=== PATIENT | female | born 1995 | race Caucasian/White ===

== ENCOUNTER 2019-11-18 22:55 | Emergency (ER) | payer OTHER, SELFPAY ==
[2019-11-18 22:56] VITALS: BP 130/79; PULSE 97; RESP 15; TEMP 36.7; O2SAT 100; BMI 19.8
--- NOTE | 2019-11-18 23:05 | PC.NURSE ---
heart tones 148
[2019-11-18 23:29] LABS: Strep Scrn Group A (Rapid) Negative (Negative)
--- NOTE | 2019-11-19 00:24 | HMH.EDURI ---
ED Disposition Clinical Impression: Pharyngitis Qualifiers: Pharyngitis/tonsillitis etiology: unspecified etiology Qualified Code(s): J02.9 - Acute pharyngitis, unspecified Qualifiers: Weeks of gestation: 21 weeks Qualified Code(s): Z3A.21 - 21 weeks gestation of Disposition: Home, Self-Care Condition on Discharge: Good Instructions: DI for Strep Throat Additional Instructions: use meds and see pcp and ob for follo wup Prescriptions: cephALEXin [Keflex 500mg Cap] 500 mg PO TID #30 cap Transmission Status: Pending to [facility] Referrals: Provider,Referral, [Primary Care Provider] - - Critical Care Critical Care Time: No Attestation: On 11/18/19, the high probability of a clinically significant, sudden or life threatening deterioration of the following system(s) required my full and direct attention, intervention and personal management. The time I documented below is in addition to time spent performing reported procedures but includes the following listed in this critical care notation. Medical Decision Making - Medical Records Medical records reviewed: Yes: I reviewed the patient's medical records. - Cristi Inquiry Pt receiving controlled substance: No Vital Signs: 11/18/19 22:56 Temperature 98.1 F Temperature Source Oral Pulse Rate [Left Radial] 97 H Respiratory Rate 15 Blood Pressure [Right Arm] 130/79 Blood Pressure Mean [Right Arm] 96 Blood Pressure Source [Right Arm] Automatic Cuff Blood Pressure Position [Right Arm] Sitting 02 Sat by Pulse Oximetry 100 Oxygen Delivery Method Room Air - Lab Data Lab results reviewed: Yes: I reviewed the patient's lab results. Lab Results 11/18/19 23:00: Influenza Type A Ag Negative, Influenza Type B Ag Negative 11/18/19 23:00: Group A Strep Rapid Negative Orders (Tests/Meds): ORDERS Category Date Time Status Strep Screen Confirmation Stat Micro 11/18/19 23:00 Received URI/Sore Throat HPI - General Chief Complaint: Upper Respiratory Infection Stated Complaint: sore throat/blisters 21 wks Time Seen by Provider: 11/19/19 00:00 Mode of Arrival: Ambulatory Source of Information: Patient, Medical Record Limitations: No Limitations Description of Symptoms (Recalled from ER Triage Doc. by RN): pt c/o of a sore throat with white patches since today. pt denies any SOB, cough or fever at this time. - History of Present Illness HPI Narrative: sore throat today w/o cough or rash and no fever - no known exposure covid-19 - preg 21 weeks Complaint: sore throat Onset (ago): hour(s) Duration: intermittent Severity: moderate Able to tolerate fluids by mouth: Yes Associated symptoms: denies other symptoms Treatments prior to arrival: none - Related Data Previous Rx's Medication Instructions Recorded cephALEXin [Keflex 500mg Cap] 500 mg PO TID #30 cap 11/19/19 Allergies Allergy/AdvReac Type Severity Reaction Status Date / Time No Known Allergies Allergy Verified 11/18/19 23:16 [facility] History - Hepatitis A Screen Drug use history?: No High risk sexual behaviors?: No History of sexually transmitted infection?: No Currently employed?: No Childcare worker?: No Do you have indoor plumbing?: Yes Do you have electricity?: Yes Attestation statement:: This patient has been screened for Hepatitis A risk factors. I have reviewed the patient's past medical history: Yes - Social History Smoking Status: Current every day smoker Tobacco Type: e-cigarettes # Packs/Day (cigarettes): 1 Alcohol Intake: never Occupational Status: employed ROS Obtained: Yes All systems reviewed & no additional complaints - Constitutional Constitutional: Denies fever(s) - Eyes Eyes: Denies change in vision - ENT Ears, Nose, Mouth, and Throat: Reports as per HPI, Reports sore throat - Cardiovascular Cardiovascular: Denies chest pain - Respiratory Respiratory: No cough - Gastrointes
[2019-11-19 00:35] VITALS: BP 125/78; PULSE 92; RESP 15; TEMP 36.7; O2SAT 97
== END 2019-11-19 00:38 | disposition home or self-care (01) ==
PROVIDERS: Emergency Provider Emergency Medicine
DX: J02.9 Acute pharyngitis, unspecified (principal); Z3A.21 21 weeks gestation of pregnancy; F17.290 Nicotine dependence, other tobacco product, uncomplicated
CPT/HCPCS: 87275; 87276; 87430; 99282

== ENCOUNTER 2020-06-11 10:34 | Emergency (ER) | payer OTHER, SELFPAY ==
[2020-06-11 10:41] VITALS: BP 146/99; PULSE 100; RESP 20; TEMP 36.8; O2SAT 97; BMI 21.9
--- NOTE | 2020-06-11 10:44 | HMH.EDGENADL ---
ED Disposition Clinical Impression: Tooth ache, Dental caries Disposition: Home, Self-Care Condition on Discharge: Good Instructions: DI for Dental Pain Additional Instructions: Penicillin as prescribed. Cloudcroft as needed for pain. Additional instructions for DENTAL PROBLEMS: See a dentist as soon as possible for further evaluation. Return immediately if you have an uncontrollable fever greater than 102 degrees, difficulty breathing or shortness of breath, persistent vomiting, or inability to swallow. Additional instructions for CONTROLLED SUBSTANCES: You have been prescribed a medication that is a controlled substance. Controlled substances include pain medications known as opiates and sedative nerve medications known as benzodiazepines. Tramadol, fioricet, and gabapentin are also controlled substances. Some common opiates include: Codeine (such as Tylenol #3) Hydrocodone (Vicodin, Lortab, Lorcet, Cloudcroft) Oxycodone (Percocet, Percodan, Oxycodone, Oxy IR) Some common benzodiazepines include: Diazepam (Valium) Lorazepam (Ativan) Alprazolam (Xanax) Clonazepam (Klonopin) Oxazepam (Serax) All of these controlled substances are highly addictive and frequently abused. Misuse can and frequently does lead to addiction as well as overdose and . Medication should be stored in a locked cabinet or other secure storage unit. Do not store the medication in a motor vehicle. Short term supplies, 3 days or less, are prescribed because of the highly addictive nature of the medication. Any of the controlled substance medication NOT taken should be disposed of properly and NOT SAVED. The recommended method of disposing of unused medications is: Place the medicines in a sealable plastic bag. If the medicine is a solid, crush it or add water to dissolve it. Add something undesirable (cat litter, coffee grounds, etc.) Dispose of sealed bag in household trash Do not flush or pour unused medicines down a sink or drain. Controlled substances should not be shared, given away or sold. Because of the addictive nature and frequent abuse, these medications are sometimes stolen. These medications should be kept in a safe place where they cannot be stolen. Do not keep them in your car or purse. Lost or stolen prescriptions for controlled substances WILL NOT BE REFILLED in this emergency department, regardless of whether a police report was filed. Prescriptions: Hydrocod/Acet 5/325 mg [[place] 5/325mg tablet] 1 tab PO Q6HP PRN #10 tab PRN Reason: Pain Transmission Status: [facility] Penicillin V Potassium 500 mg PO QID #40 tab Transmission Status: Pending to [facility] Referrals: PCP,No [Primary Care Provider] - - Critical Care Critical Care Time: No Attestation: On , the high probability of a clinically significant, sudden or life threatening deterioration of the following system(s) required my full and direct attention, intervention and personal management. The time I documented below is in addition to time spent performing reported procedures but includes the following listed in this critical care notation. Medical Decision Making - Cristi Inquiry Pt receiving controlled substance: Yes Cristi was queried for this patient: Yes Reference #:: [id number] Risks and benefits of using a controlled substance: were discussed with pt by me Comment: 0 rxs. Vital Signs: 06/11/20 10:41 Temperature 98.3 F Temperature Source Oral Pulse Rate [Left Radial] 100 H Respiratory Rate 20 Blood Pressure [Left Arm] 146/99 H Blood Pressure Mean [Left Arm] 114 Blood Pressure Source [Left Arm] Automatic Cuff Blood Pressure Position [Left Arm] Supine 02 Sat by Pulse Oximetry 97 Oxygen Delivery Method Room Air General Adult HPI - General Stated complaint: mouth pain Time Seen by Provider: 06/11/20 10:55 - History of Present Illness HPI narrative: 2-day history of left mandibular
[2020-06-11 11:01] VITALS: BP 133/102; PULSE 96; RESP 20; O2SAT 97
[2020-06-11 11:11] VITALS: BP 145/97; PULSE 98; RESP 16; TEMP 36.8; O2SAT 98
== END 2020-06-11 11:16 | disposition home or self-care (01) ==
PROVIDERS: Emergency Provider Emergency Medicine
DX: K02.9 Dental caries, unspecified (principal); K08.89 Other specified disorders of teeth and supporting structures; F17.290 Nicotine dependence, other tobacco product, uncomplicated
CPT/HCPCS: 99282

== ENCOUNTER 2020-08-02 15:56 | Emergency (ER) | payer OTHER, SELFPAY ==
[2020-08-02 16:22] VITALS: BP 143/72; PULSE 94; RESP 16; TEMP 36.8; O2SAT 97; BMI 21.2
--- NOTE | 2020-08-02 16:58 | HMH.EDUTC ---
[facility] [place] Clinical Impression: Suspected COVID-19 virus infection Maxillary sinusitis, acute Qualifiers: Recurrence: non-recurrent Qualified Code(s): J01.00 - Acute maxillary sinusitis, unspecified Disposition: Home, Self-Care Condition on Discharge: Good Instructions: Sinusitis, Sinus Headache, DI for Sinusitis, DI for COVID-19 (Suspected or Confirmed ), Preventing the Spread of Coronavirus Discharge Instructions Additional Instructions: Start antibiotic patient to take as ordered for a full length of time even if you feel better. Sinus infections do not get better overnight. It may take 2-3 days to notice much improvement so be sure to use conservative measures as discussed for symptoms. Flonase 1 spray each nostril daily to help with nasal congestion, sinus and ear pressure/information Increase fluids Humidifier/vaporizer as needed Tylenol and ibuprofen as needed for fever or pain. If symptoms do not improve or get worse return or be seen in the ER Follow-up with primary care this week self isolate until test results are known to be neg CODY diet Prescriptions: Fluticasone Propionate [Flonase 50mcg nasal spray 16gm] 1 spr NS DAILY 14 Days #1 bottle Transmission Status: Pending to [facility] Azithromycin [Zithromax 250mg tab] 250 mg PO DIRECTED #6 tab Transmission Status: Pending to [facility] Referrals: PCP,No [Primary Care Provider] - Forms: Work/School Release Time of Disposition: 17:05 Medical Decision Making - Cristi Inquiry Pt receiving controlled substance: No Vital Signs: 08/02/20 16:22 Temperature 98.3 F Temperature Source Oral Pulse Rate [Right] 94 H Respiratory Rate 16 Blood Pressure [Right Arm] 143/72 H Blood Pressure Mean [Right Arm] 95 Blood Pressure Source [Right Arm] Automatic Cuff Blood Pressure Position [Right Arm] Sitting 02 Sat by Pulse Oximetry 97 Orders (Tests/Meds): ORDERS Category Date Time Status Covid-19 Nasal PCR ([facility]) Routine Lab 08/02/20 16:47 Ordered [facility] [place] - General Chief complaint: [facility] Stated complaint: covid test, sore throat,V&D,[place],Weakness Time Seen by Provider: 08/02/20 16:58 Mode of Arrival: Ambulatory Source of Information: Patient Limitations: No Limitations Description of Symptoms (Recalled from Triage Doc. by RN): WEAKNESS, N/V, DIARHEA, SORE THROAT. HEENT Symptoms (Recalled from RN notes): Yes (SORE THROAT) Resp Symptoms (Recalled from RN notes): No Skin Symptoms (Recalled from RN notes): No MS Symptoms (Recalled from RN notes): No Functional Status (Recalled from RN notes): NA - History of Present Illness Provider Complaint: 25 yr old female presents for green nasal congestion,sore throat, body aches, headache and n/v. - Related Data Previous Rx's Medication Instructions Recorded Hydrocod/Acet 5/325 mg [[place] 1 tab PO Q6HP PRN #10 tab 06/11/20 5/325mg tablet] Penicillin V Potassium 500 mg PO QID #40 tab 06/11/20 Azithromycin [Zithromax 250mg 250 mg PO DIRECTED #6 tab 08/02/20 tab] Fluticasone Propionate [Flonase 1 spr NS DAILY 14 Days #1 bottle 08/02/20 50mcg nasal spray 16gm] Allergies Allergy/AdvReac Type Severity Reaction Status Date / Time No Known Allergies Allergy Verified 11/18/19 23:16 - Worker's Comp Is this a Worker's Comp case?: No [facility] History - Hepatitis A Screen Drug use history?: No High risk sexual behaviors?: No History of sexually transmitted infection?: No Currently employed?: No Childcare worker?: No Do you have indoor plumbing?: Yes Do you have electricity?: Yes Attestation statement:: This patient has been screened for Hepatitis A risk factors. I have reviewed the patient's past medical history: Yes - Social History Smoking Status: Never smoker Tobacco Type: e-cigarettes # Packs/Day (cigarettes): 1 Alcohol Intake: never Occupational Status: employed ROS Obtained: Yes Systems reviewed as appropriat
[2020-08-02 17:27] VITALS: BP 144/79; PULSE 87; RESP 16; TEMP 36.8
[2020-08-02 17:52] LABS: UTC Strep Screen (Rapid) Negative (Negative)
[2020-08-03 19:06] LABS: UTC Influenza A Antigen Negative (Negative); UTC Influenza B Antigen Negative (Negative)
== END 2020-08-02 17:15 | disposition home or self-care (01) ==
PROVIDERS: Emergency Provider Nurse Practitioner Family
DX: Z20.822 Contact with and (suspected) exposure to COVID-19 (principal); J01.00 Acute maxillary sinusitis, unspecified; F17.290 Nicotine dependence, other tobacco product, uncomplicated
CPT/HCPCS: 87804; 87880; 99202; G0463; U0003

== ENCOUNTER 2021-01-10 09:03 | Emergency (ER) | payer OTHER, SELFPAY ==
[2021-01-10 09:33] VITALS: BP 116/70; PULSE 109; RESP 18; TEMP 36.9; O2SAT 98; BMI 21.9
[2021-01-10 09:39] LABS: Coronavirus 19, PCR Not Detected (NotDetected); Influenza A, PCR Not Detected (NotDetected); Influenza B, PCR Not Detected (NotDetected)
[2021-01-10 09:42] LABS: UTC Strep Screen (Rapid) Positive (Negative)
--- NOTE | 2021-01-10 09:44 | HMH.EDUTC ---
[facility] [place] Dis[place] Clinical Impression: Strep throat Disposition: Home, Self-Care Condition on Discharge: Good Instructions: DI for Strep Throat, Strep Throat Additional Instructions: *Monitor Temp, Over the counter Motrin or Tylenol as directed/as needed Tylenol every 4 hours and Motrin every 6 hours (as long as your family doctor has told you that you can take it) for fever or pain. and straight to ER if unable to lower temp less than 101.0 after medication given *Warm salt water gargles may help to soothe the throat *Throat Lozenges *Warm fluids like tea with honey may help to soothe the throat *Sleep elevated *Humidifier/Vaporizer *Flonase 2 sprays in each nostril daily but be aware that it may take 2-3 days before you notice improvement Follow up IMMEDIATELY for new or worsening symptoms or no Noticeable improvement over the next 48-72 hours. 911 for difficulty breathing or swallowing You were tested for today for COVID19 your test result should be back in the next 24-48 hours, you may call to the [facility] to see if your test results are back in the next 48 hours [phone] [facility] hours are 9am-9pm You was given a handout with instructions for Self Quarantine and Self isolation for while you wait on test results and what to do if they are positive If you are positive the Health Dept will be contacting you also Prescriptions: Amoxicillin [Amoxicillin 500mg Cap] 500 mg PO TID #30 cap Transmission Status: [facility] to [facility] Ondansetron [Zofran 4mg ODT] 4 mg PO TIDP PRN #6 tab PRN Reason: Nausea Transmission Status: [facility] to [facility] Referrals: Provider,Referral, [Primary Care Provider] - As needed Forms: Work/School Release Time of Disposition: 09:56 Medical Decision Making - Cristi Inquiry Pt receiving controlled substance: No Cristi was queried for this patient: No Vital Signs: 01/10/21 09:33 Temperature 98.5 F Temperature Source Oral Pulse Rate [Apical] 109 H Respiratory Rate 18 Blood Pressure [Right Arm] 116/70 Blood Pressure Mean [Right Arm] 85 Blood Pressure Source [Right Arm] Automatic Cuff Blood Pressure Position [Right Arm] Supine 02 Sat by Pulse Oximetry 98 Oxygen Delivery Method Room Air - Lab Data Lab results reviewed: Yes: I reviewed the patient's lab results. Lab Results 01/10/21 09:29: Strep Scn Rapid Clinic Positive A Orders (Tests/Meds): ORDERS Category Date Time Status Rapid PCR Covid and Flu A/B Stat Lab 01/10/21 09:38 Received [facility] [place] HPI - General Stated complaint: nausea, muscle pain Time Seen by Provider: 01/10/21 09:44 Mode of Arrival: Ambulatory Source of Information: Patient Limitations: No Limitations Description of Symptoms (Recalled from Triage Doc. 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 and other Upper Respiratory Viruses States that for the last couple of days she has been having body aches, chills, and nausea along with headache States that today she was feeling worse so she came in to get checked - Related Data Previous Rx's Medication Instructions Recorded Hydrocod/Acet 5/325 mg [[place] 1 tab PO Q6HP PRN #10 tab 06/11/20 5/325mg tablet] Penicillin V Potassium 500 mg PO QID #40 tab 06/11/20 Azithromycin [Zithromax 250mg 250 mg PO DIRECTED #6 tab 08/02/20 tab] Fluticasone Propionate [Flonase 1 spr NS DAILY 14 Days #1 bottle 08/02/20 50mcg nasal spray 16gm] Amoxicillin [Amoxicillin 500mg 500 mg PO TID #30 cap 01/10/21 Cap] Ondansetron [Zofran 4mg ODT] 4 mg PO TIDP PRN #6 tab 01/10/21 Allergies Allergy/AdvRea
[2021-01-10 09:58] VITALS: BP 116/70; PULSE 109; RESP 18; TEMP 36.9; O2SAT 98
== END 2021-01-10 10:00 | disposition home or self-care (01) ==
PROVIDERS: Emergency Provider Nurse Practitioner
DX: J02.0 Streptococcal pharyngitis (principal); Z20.822 Contact with and (suspected) exposure to COVID-19
CPT/HCPCS: 87880; 99202; G0463; U0003

== ENCOUNTER 2021-01-18 18:26 | Emergency (ER) | payer OTHER, SELFPAY ==
[2021-01-18 19:17] VITALS: BP 121/86; PULSE 88; RESP 18; TEMP 36.9; O2SAT 98; BMI 21.9
--- NOTE | 2021-01-18 19:25 | HMH.EDUTC ---
[facility] [place] Disposition Clinical Impression: Encounter for laboratory testing for COVID-19 virus Disposition: Home, Self-Care Condition on Discharge: Good Instructions: DI for COVID-19 (Suspected or Confirmed ), Preventing the Spread of Coronavirus Discharge Instructions Additional Instructions: *Monitor Temp, Over the counter Motrin or Tylenol as directed/as needed Tylenol every 4 hours and Motrin every 6 hours (as long as your family doctor has told you that you can take it) for fever or pain. and straight to ER if unable to lower temp less than 101.0 after medication given *Warm salt water gargles may help to soothe the throat *Throat Lozenges *Warm fluids like tea with honey may help to soothe the throat *Sleep elevated *Humidifier/Vaporizer *Flonase 2 sprays in each nostril daily but be aware that it may take 2-3 days before you notice improvement *Bromfed may cause drowsiness. Know how it effects you (your child) before driving, caring for small child, or sending your child to school. Not other antihistamines/allergy medications while taking bromfed Follow up IMMEDIATELY for new or worsening symptoms or no Noticeable improvement over the next 48-72 hours. 911 for difficulty breathing or swallowing You were tested for today for COVID19 your test result should be back in the next 24-48 hours, you may call to the [facility] to see if your test results are back in the next 48 hours [phone] [facility] hours are 9am-9pm You was given a handout with instructions for Self Quarantine and Self isolation for while you wait on test results and what to do if they are positive If you are positive the Health Dept will be contacting you also Prescriptions: Brompheniramine/Pseudoephed/Dm [Bromfed Dm Cough Syrup] 5 - 10 ml PO Q46H PRN #240 ml PRN Reason: Cough Transmission Status: Pending to [facility] Fluticasone Propionate [Flonase 50mcg nasal spray 16gm] 1 spr NS DAILY #1 ml Transmission Status: Pending to [facility] Referrals: Provider,Referral, MD [Primary Care Provider] - As needed Forms: Work/School Release Time of Disposition: 19:30 Medical Decision Making - Cristi Inquiry Pt receiving controlled substance: No Cristi was queried for this patient: No Vital Signs: 01/18/21 19:17 Temperature 98.5 F Temperature Source Oral Pulse Rate [Left] 88 Respiratory Rate 18 Blood Pressure [Right Arm] 121/86 Blood Pressure Mean [Right Arm] 97 02 Sat by Pulse Oximetry 98 Orders (Tests/Meds): ORDERS Category Date Time Status Full Resp Panel w/COVID ([facility]) Routine Lab 01/18/21 19:18 Ordered [facility] [place] HPI - General Stated complaint: covid test Time Seen by Provider: 01/18/21 19:25 Mode of Arrival: Ambulatory Source of Information: Patient Limitations: No Limitations Description of Symptoms (Recalled from Triage Doc. by RN): pt c/o runny nose, cough, chills and body aches x1 weeks. HEENT Symptoms (Recalled from RN notes): Yes (nasal drainage) Resp Symptoms (Recalled from RN notes): Yes (cough) Skin Symptoms (Recalled from RN notes): No MS Symptoms (Recalled from RN notes): No Functional Status (Recalled from RN notes): chills and body aches - History of Present Illness Provider Complaint: Patient states that she has been having nasal congestion and runny nose, cough, fever body aches and chills State that she is currently on Medication for strep throat but still is not feeling any better so she came in wanting to get tested for COVID and RSV due to her child has it right now - Related Data Previous Rx's Medication Instructions Recorded Hydrocod/Acet 5/325 mg [[place] 1 tab PO Q6HP PRN #10 tab 06/11/20 5/325mg tablet] Penicillin V Potassium 500 mg PO QID #40 tab 06/11/20 Azithromycin [Zithromax 250mg 250 mg PO DIRECTED #6 tab 08/02/20 tab] Fluticasone Propionate [Flonase 1 spr NS DAILY 14 Days #1 bottle 08/02/20 50mcg nasal spray 16gm] Amoxicillin [Amoxicillin 500mg 500 mg PO TID #30
[2021-01-18 19:27] LABS: Adenovirus,PCR Not Detected (NotDetected); Bordetella Pertussis Not Detected (NotDetected); Chlamydophila Pneumoniae, PCR Not Detected (NotDetected); Coronavirus 19, PCR Not Detected (NotDetected); Coronavirus 229E Not Detected (NotDetected); Coronavirus NL63 Not Detected (NotDetected); Coronavirus OC43 Not Detected (NotDetected); Coronovirus HKU1,PCR Not Detected (NotDetected); Human Metapneumovirus Not Detected (NotDetected); Influenza A, PCR Not Detected (NotDetected); Influenza AH1, 2009 Not Detected (NotDetected); Influenza AH1, PCR Not Detected (NotDetected); Influenza AH3,PCR Not Detected (NotDetected); Influenza B, PCR Not Detected (NotDetected); Mycoplasma Pneumoniae, PCR Not Detected (NotDetected); Parainfluenza 1, PCR Not Detected (NotDetected); Parainfluenza 2, PCR Not Detected (NotDetected); Parainfluenza 3, PCR Not Detected (NotDetected); Parainfluenza 4, PCR Not Detected (NotDetected); Rhinovirus/Enterovirus Not Detected (NotDetected)
[2021-01-18 20:02] VITALS: BP 125/81; PULSE 91; RESP 18; TEMP 36.9
[2021-01-18 22:04] LABS: Respiratory Syncytial Virus Detected (NotDetected)
== END 2021-01-18 20:02 | disposition home or self-care (01) ==
PROVIDERS: Emergency Provider Nurse Practitioner
DX: J06.9 Acute upper respiratory infection, unspecified (principal); B97.4 Respiratory syncytial virus as the cause of diseases classified elsewhere; Z20.822 Contact with and (suspected) exposure to COVID-19
CPT/HCPCS: 87581; 87633; 87798; 99202; G0463

== ENCOUNTER → 2021-03-13 10:22 | Outpatient (CLI) | payer OTHER, SELFPAY | PROVIDERS: Visit Provider Nurse Practitioner | DX: Z20.822 Contact with and (suspected) exposure to COVID-19 (principal) | CPT/HCPCS: C9803; U0003; U0005 ==

== ENCOUNTER → 2021-06-04 17:24 | Outpatient (CLI) | payer OTHER, SELFPAY | PROVIDERS: Visit Provider Nurse Practitioner Family | DX: Z20.822 Contact with and (suspected) exposure to COVID-19 (principal) | CPT/HCPCS: C9803; U0003; U0005 ==

== ENCOUNTER 2021-08-31 09:06 | Emergency (ER) | payer OTHER, SELFPAY ==
[2021-08-31 09:55] VITALS: BP 121/89; PULSE 102; RESP 19; TEMP 37; O2SAT 98; BMI 22.1
--- NOTE | 2021-08-31 10:19 | HMH.EDUTC ---
[facility] [place] Disposition Clinical Impression: URI (upper respiratory infection) Qualifiers: URI type: unspecified URI Qualified Code(s): J06.9 - Acute upper respiratory infection, unspecified Disposition: Home, Self-Care Condition on Discharge: Good Instructions: Sore Throat, Azithromycin Additional Instructions: *Monitor Temp, Over the counter Motrin or Tylenol as directed/as needed Tylenol every 4 hours and Motrin every 6 hours (as long as your family doctor has told you that you can take it) for fever or pain. and straight to ER if unable to lower temp less than 101.0 after medication given *Warm salt water gargles may help to soothe the throat *Throat Lozenges *Warm fluids like tea with honey may help to soothe the throat *Sleep elevated *Humidifier/Vaporizer Your throat swab was sent for culture. Those results are typically sent to your primary care. Be sure to follow up in 2-3 days with your family doctor/primary care physician if no improvement so they can review those result and treat if necessary. If you don?t have a primary care doctor, I recommend you get one but in the mean time, you will have to return to a walk in clinic Follow up IMMEDIATELY for new or worsening symptoms or no Noticeable improvement over the next 48-72 hours. 911 for difficulty breathing or swallowing Prescriptions: Azithromycin [Z-Andres 250mg Tab] 250 mg PO DIRECTED #6 tab Transmission Status: Pending to [facility] Referrals: Provider,Referral, MD [Primary Care Provider] - As needed Time of Disposition: 11:16 Medical Decision Making - Cristi Inquiry Pt receiving controlled substance: No Cristi was queried for this patient: No Vital Signs: 08/31/21 09:55 Temperature 98.6 F Temperature Source Oral Pulse Rate [Right Brachial] 102 H Respiratory Rate 19 Blood Pressure [Right Arm] 121/89 Blood Pressure Mean [Right Arm] 99 Blood Pressure Source [Right Arm] Automatic Cuff Blood Pressure Position [Right Arm] Sitting 02 Sat by Pulse Oximetry 98 Oxygen Delivery Method Room Air - Lab Data Lab results reviewed: Yes: I reviewed the patient's lab results. Lab Results 08/31/21 10:08: Group A Strep Rapid Negative Orders (Tests/Meds): ORDERS Category Date Time Status Strep Screen Confirmation Stat Micro 08/31/21 10:08 Received [facility] [place] HPI - General Stated complaint: nausea, sore throat Time Seen by Provider: 08/31/21 10:19 Mode of Arrival: Ambulatory Source of Information: Patient Limitations: No Limitations Description of Symptoms (Recalled from Triage Doc. by RN): PATIENT C/O IRRITATED THROAT, BODY ACHES, AND UPSET STOMACH X 3 DAYS HEENT Symptoms (Recalled from RN notes): Yes Resp Symptoms (Recalled from RN notes): No Skin Symptoms (Recalled from RN notes): No MS Symptoms (Recalled from RN notes): No Functional Status (Recalled from RN notes): WNL - History of Present Illness Provider Complaint: Patient states that she thinks she may have strep throat States that her throat is feeling raw and irritated, body aches, upset stomach and over all not feeling well States that today her infant was feeling bad so she came in to get checked out - Related Data Previous Rx's Medication Instructions Recorded Azithromycin [Z-Andres 250mg Tab] 250 mg PO DIRECTED #6 tab 08/31/21 Allergies Allergy/AdvReac Type Severity Reaction Status Date / Time No Known Allergies Allergy Verified 11/18/19 23:16 - Worker's Comp Is this a Worker's Comp case?: No [facility] History - Hepatitis A Screen Drug use history?: No High risk sexual behaviors?: No History of sexually transmitted infection?: No Currently employed?: No Childcare worker?: No Do you have indoor plumbing?: Yes Do you have electricity?: Yes Attestation statement:: This patient has been screened for Hepatitis A risk factors. I have reviewed the patient's past medical history: Yes - Social History Smoking Status: Never smoker Tobacco Type:
[2021-08-31 10:41] LABS: Strep Scrn Group A (Rapid) Negative (Negative)
[2021-08-31 11:17] VITALS: BP 121/89; PULSE 102; RESP 19; TEMP 37; O2SAT 98
== END 2021-08-31 11:22 | disposition home or self-care (01) ==
PROVIDERS: Emergency Provider Nurse Practitioner
DX: J06.9 Acute upper respiratory infection, unspecified (principal); F17.290 Nicotine dependence, other tobacco product, uncomplicated
CPT/HCPCS: 87430; 99213; G0463

== ENCOUNTER 2022-09-28 09:24 | Emergency (ER) | payer OTHER, SELFPAY ==
[2022-09-28] VITALS (8 sets, daily range): BP systolic 108–116; BP diastolic 59–70; PULSE 68–99; RESP 16; TEMP 36.6–36.8; O2SAT 95–100; BMI 21.9
--- NOTE | 2022-09-28 09:32 | HMH.EDBACK ---
Discharge Plan Disposition Patient Disposition: Home, Self-Care Condition: Fair Chief Complaint: Abdominal Pain Prescriptions Prescriptions: No Action prenat.vits,cinthia,[id number]-[id number] Tablet 1 tab PO DAILY Qty: 30 11RF Referrals Follow up/Referrals: Provider,Referral, [Primary Care Provider] - See instructions Activity Restrictions/Add. Instructions Additional Instructions/Restrictions: Please return to the emergency department immediately if you feel worse in any way. It is possible that you may have appendicitis. However, I believe that the likelihood of appendicitis is relatively low at this point. If your symptoms worsen we may have to obtain a CT of your abdomen to rule out appendicitis. Follow-up with your primary care doctor in about 2 to 3 days if you do not improve. You may take efmc-rpq-ntaaxws Tylenol and or ibuprofen for your pain. Your test today was negative. Clinical Impressions Clinical Impression: Acute flank pain Instructions Patient Instructions: DI for Acute Abdominal Pain Discharge ED Provider: Vini Tucker Back Pain HPI General Chief Complaint: Abdominal Pain Stated Complaint: Possible kidney stone, lower back pain Time Seen by Provider: 09/28/22 09:32 Mode of Arrival: Family Vehicle History of Present Illness HPI Narrative: The patient presents to the emergency department complaining of right-sided flank pain since yesterday. She denies any fevers. The pain is worse with movement. Patient's last period was at the beginning of the month. She is currently trying to become . There is no nausea vomiting or diarrhea. Patient denies any recent injuries MD Complaint: back pain Related Data Previous Rx's Medication Instructions Recorded prenat.vits,cinthia,aza-shhh-[id number] 1 tab PO DAILY #30 tabs 06/13/22 Allergies Allergy/AdvReac Type Severity Reaction Status Date / Time No Known Allergies Allergy Verified 06/13/22 14:19 [facility] Disclaimer: The information contained in this section may have been updated after the patient was seen, as this information can be updated by other users. Family History Other Anemia Cancer Hyperlipidemia Substance abuse Social History Smoking Status: Never smoker smoking status start date: vapes alcohol intake: never substance use type: denies use current occupational status: employed and other Travel in the last 8 weeks: None ROS Obtained: Yes All systems reviewed & no additional complaints except as documented Physical Exam General General appearance: alert Head Head exam: atraumatic Eye Eye exam: Present normal appearance; Absent scleral icterus or jaundice ENT ENT exam: Present normal exam Neck Neck exam: Present normal inspection and full ROM; Absent tenderness or meningismus Chest Chest inspection: Present normal inspection and symmetric chest wall rise; Absent tenderness Respiratory Respiratory exam: Present normal lung sounds bilaterally; Absent respiratory distress or accessory muscle use Cardiovascular Cardiovascular exam: Present regular rate, normal rhythm and normal heart sounds Abdominal Exam Abdominal exam: Present soft, tenderness (Mild discomfort in the suprapubic area on deep palpation.) and normal bowel sounds; Absent distention, heel tap sign, Gooden's sign, Rovsing's sign, tenderness at McBurney's Point or mass Extremities Exam Extremities exam: Present normal inspection and full ROM; Absent calf tenderness Back Exam Back exam: Present normal inspection and other (The patient's subjective complaint is worsened with movement and twisting of the back.); Absent CVA tenderness (R), CVA tenderness (L), vertebral tenderness, sciatic notch tenderness (R), sciatic notch tenderness (L), straight leg raise (R) or straight leg raise (L) Neurological Exam Neurological exam: Pres
--- NOTE | 2022-09-28 09:44 | PC.NURSE ---
KARLEY Dominguez rounded on patient. Call light within reach. Pt requesting no needs at this time.
--- NOTE | 2022-09-28 09:48 | PC.NURSE ---
rounded on pt no complaints at this time,call light @ bs
[2022-09-28 10:16] LABS: Microscopic, Urine URINE MICROSCOPIC (MICROSCOPIC)
[2022-09-28 10:22] LABS: Appearance,Urine CLEAR (Clear); Bilirubin,Urine Negative (Negative); Blood, Urine TRACE-L (Negative); Color,Urine YELLOW (Yellow); Glucose,Urine (UA) Negative (Negative); Ketones,Urine Negative (Negative); Leukocyte Esterase,Urine 1+ (Negative); Nitrate,Urine Negative (Negative); Protein,Urine Negative (Negative); Specific Gravity, Urine <= 1.005 (1.005-1.030); Urobilinogen,Urine 0.2 EU/dl (0.2)
[2022-09-28 10:23] LABS: Urine Pregnancy, HCG Qual. Negative (Negative)
[2022-09-28 10:33] LABS: Bacteria,Urine Trace /lpf; RBC,Urine Occasional #/hpf (0-3); Squamous Epithelial Cell,Urine Occasional #/hpf (0-5); WBC,Urine Occasional #/hpf (0-3)
--- NOTE | 2022-09-28 10:45 | PC.NURSE ---
KARLEY Dominguez rounding on patient. Pt reading book at this time. Call light within reach. No other needs at this time.
[2022-09-28 10:53] LABS: Basophils % 0.6 % (0.1-2.0); Eosinophils # 0.1 K/mm3 (0.0-0.4); Lymphocytes # 2.6 K/mm3 (0.7-4.5); Mean Corpuscular HGB Conc 33.3 g/dL (31.8-35.4); Mean Corpuscular Hemoglobin 30.2 pg (27.0-31.2); Mean Corpuscular Volume 90.5 fl (81-99); Monocytes # 0.4 K/mm3 (0.1-1.0); Monocytes % 6.3 % (1.7-9.3); Neutrophils # 2.9 K/mm3 (1.8-7.8); Neutrophils % 48.1 % (37.0-80.0); Platelet Count 266 K/mm3 (142-424); Red Blood Count 4.97 M/mm3 (4.20-5.40)
[2022-09-28 10:55] LABS: Chloride 103 mmol/L (98-107); Sodium 140 mmol/L (136-145)
[2022-09-28 10:56] LABS: Potassium 3.4 mmoL/L (3.5-5.1)
[2022-09-28 10:58] LABS: Alanine Aminotransferase 18 U/L (12-78); Albumin Level 4.7 g/dl (3.5-5.0); Albumin/Globulin Ratio 1.5 (1.1-1.8); Alkaline Phosphatase 54 U/L (38-126); Anion Gap 12.4 mEq/L (5-15); Aspartate Amino Transferase 28 U/L (14-36); Bilirubin,Total 0.6 mg/dl (0.2-1.3); Blood Urea Nitrogen 9 mg/dl (7-17); Calcium 9.2 mg/dl (8.4-10.2); Carbon Dioxide 28 mmol/L (22.0-30.0); Creatinine Clearance Estimated 141 mL/min (50-200); Estimated Glomerular Filt Rate 120 ml/min (>60); GFR (African American) 145 ML/MIN (>60); Globulin 3.1 g/dL (1.3-3.2); Glucose 74 mg/dl (74-100); Lipase 71 U/L (23-300); Total Protein,Serum 7.8 g/dl (6.3-8.2)
== END 2022-09-28 11:49 | disposition home or self-care (01) ==
PROVIDERS: Emergency Provider Emergency Medicine
DX: R10.9 Unspecified abdominal pain (principal); M54.50 Low back pain, unspecified
CPT/HCPCS: 80053; 81001; 81025; 83690; 85025; 87086; 99284; 99285

== ENCOUNTER 2022-10-08 08:03 | Emergency (ER) | payer OTHER, SELFPAY ==
[2022-10-08 08:03] VITALS: BP 120/85; PULSE 87; RESP 17; TEMP 36.6; O2SAT 98; BMI 21.9
[2022-10-08 08:27] LABS: UTC Strep Screen (Rapid) Negative (Negative)
--- NOTE | 2022-10-08 08:32 | EXP.UTC ---
Discharge Plan Disposition Patient Disposition: Home, Self-Care Condition: Good Prescriptions Prescriptions: New amoxicillin [amoxicillin] 500 mg tablet 500 mg PO TID 10 Days Qty: 30 0RF [id number]-doorsxwpo-LH [Bromfed DM] 2-30-10 mg/5 mL Syrup 5 ml PO Q6H PRN (Reason: Cough) Qty: 240 0RF No Action prenat.vits,cinthia,cpp-jdre-wjblz Tablet 1 tab PO DAILY Qty: 30 11RF Referrals Follow up/Referrals: Provider,Referral, [Primary Care Provider] - See instructions Activity Restrictions/Add. Instructions Additional Instructions/Restrictions: Drink plenty of fluids. Take tylenol or ibuprofen for pain or fever. Take the medications as directed. Follow up with your regular doctor. GO TO THE ER FOR ANY WORSENING SYMPTOMS Clinical Impressions Clinical Impression: Pharyngitis Stand Alone Forms Stand Alone Forms: Work/School Release Instructions Patient Instructions: DI for Pharyngitis/Tonsillopharyngitis -- Adult Discharge ED Provider: [facility] General Stated complaint: sore throat,chills,fever Time Seen by Provider: 10/08/22 08:32 History of Present Illness Provider Complaint: she states that for the past 2 days she has had a sore throat, chills, low grade fever and malaise. Related Data Previous Rx's Medication Instructions Recorded prenat.vits,cinthia,pjl-ficd-ozojv 1 tab PO DAILY #30 tabs 06/13/22 amoxicillin 500 mg tablet 500 mg PO TID 10 days #30 tabs 10/08/22 vkfldfrqtwumhdc-pzglfcfrarcplfh-YA 5 ml PO Q6H PRN Cough #240 mL 10/08/22 2 mg-30 mg-10 mg/5 mL oral syrup (Bromfed DM) Allergies Allergy/AdvReac Type Severity Reaction Status Date / Time No Known Allergies Allergy Verified 06/13/22 14:19 [facility] Disclaimer: The information contained in this section may have been updated after the patient was seen, as this information can be updated by other users. Family History Other Anemia Cancer Hyperlipidemia Substance abuse Social History Smoking Status: Never smoker smoking status start date: vapes alcohol intake: never substance use type: denies use current occupational status: employed and other Travel in the last 8 weeks: None ROS Obtained: Yes All systems reviewed & no additional complaints except as documented Constitutional Constitutional: Reports chills and Reports fever(s) Eyes Eyes: Denies eye discharge ENT Ears, Nose, Mouth, and Throat: Reports as per HPI Cardiovascular Cardiovascular: Denies chest pain Respiratory Respiratory: Denies chest congestion and Reports cough Gastrointestinal Gastrointestingal: Reports nausea; Denies abdominal pain, constipation, cramping, diarrhea or vomiting Musculoskeletal Musculoskeletal: Denies arthralgias Integumentary/Breasts Skin/Breast: Denies rash Neurologic Neurologic: Denies paresthesias Physical Exam General General appearance: alert and in no apparent distress Head Head exam: atraumatic, normocephalic and normal inspection Eye Eye exam: Present normal appearance, PERRL and EOMI ENT ENT exam: Present mucous membranes moist and normal external ear exam Expanded ENT Exam TM/Canal exam: Bilateral TM: erythema and bulging Nose exam: Absent sinus tenderness Mouth exam: Present normal external inspection; Absent drooling Teeth exam: Present normal inspection Throat exam: Present tonsillar erythema, tonsillomegaly and tonsillar exudate Neck Neck exam: Present normal inspection, full ROM and trachea midline; Absent tenderness, meningismus or lymphadenopathy Chest Chest inspection: Present normal inspection and symmetric chest wall rise; Absent tenderness Respiratory Respiratory exam: Present normal lung sounds bilaterally; Absent respiratory distress, wheezes or stridor Cardiovascular Cardiovascular exam: Present regular rate and normal rhythm; Absent systolic mu
[2022-10-08 08:53] VITALS: BP 119/76; PULSE 81; RESP 16; TEMP 36.6; O2SAT 99
== END 2022-10-08 08:56 | disposition home or self-care (01) ==
PROVIDERS: Emergency Provider Nurse Practitioner Family
DX: J02.9 Acute pharyngitis, unspecified (principal); R50.9 Fever, unspecified; F17.290 Nicotine dependence, other tobacco product, uncomplicated
CPT/HCPCS: 87880; 99212; 99214; G0463

== ENCOUNTER → 2023-01-16 12:56 | Outpatient (CLI) | payer OTHER, SELFPAY ==
[2023-01-16 14:16] LABS: HCG,Quantitative 1300 mIU/ml (0-5.42)
[2023-01-17 08:53] LABS: Progesterone 7.1 ng/mL (.)
== END ==
PROVIDERS: Visit Provider Obstetrics & Gynecology
DX: N92.6 Irregular menstruation, unspecified (principal); Z32.00 Encounter for pregnancy test, result unknown
CPT/HCPCS: 36415; 84144; 84702

== ENCOUNTER → 2023-02-06 23:33 | Outpatient (CLI) | payer OTHER, SELFPAY | PROVIDERS: Visit Provider Obstetrics & Gynecology | DX: Z34.91 Encounter for supervision of normal pregnancy, unspecified, first trimester (principal); Z3A.01 Less than 8 weeks gestation of pregnancy | CPT/HCPCS: 87086; 87088; 87186 ==

== ENCOUNTER → 2023-02-14 15:08 | Outpatient (CLI) | payer OTHER, SELFPAY ==
[2023-02-14 15:28] LABS: Basophils % 0.3 % (0.1-2.0); Eosinophils # 0.1 K/mm3 (0.0-0.4); Hematocrit 38.6 % (37.0-47.0); Hemoglobin 13.5 g/dL (12.2-16.2); Lymphocytes # 2.2 K/mm3 (0.7-4.5); Lymphocytes % 27.2 % (10-50); Mean Corpuscular Volume 88.6 fl (81-99); Mean Platelet Volume 8.6 fl (7.4-10.4); Monocytes # 0.5 K/mm3 (0.1-1.0); Neutrophils # 5.4 K/mm3 (1.8-7.8); Neutrophils % 65.5 % (37.0-80.0); Platelet Count 209 K/mm3 (142-424); Red Blood Count 4.35 M/mm3 (4.20-5.40); Red Cell Distribution Width 12.8 % (11.5-17.5); White Blood Count 8.2 K/mm3 (4.8-10.8)
[2023-02-16 08:24] LABS: Rubella Antibodies, IgG 2.52 index (Immune >0.99)
[2023-02-16 11:34] LABS: Rapid Plasma Reagin Ab Titer Non Reactive (NonRea<1:1)
[2023-02-25 11:59] LABS: HIV Screen 4th Generation wRfx Non Reactive; Hepatitis B Surface Antigen Negative; Hepatitis C Antibody Non Reactive
== END ==
PROVIDERS: Visit Provider Obstetrics & Gynecology
DX: Z34.91 Encounter for supervision of normal pregnancy, unspecified, first trimester (principal); Z3A.08 8 weeks gestation of pregnancy
CPT/HCPCS: 36415; 85025; 86593; 86703; 86762; 86850; 87340; 87380; G0432

== ENCOUNTER → 2023-05-01 10:18 | Outpatient (CLI) | payer OTHER, SELFPAY ==
--- NOTE | 2023-05-01 10:19 | US_ITS ---
PROCEDURE: US OB /MATERNAL DETAIL CLINICAL INDICATION: 20 week anatomy scan COMPARISON: No exams were available for comparison FINDINGS: Transabdominal sonographic images of the pelvis were obtained. From her established due date she is 19 weeks 6 days. Single viable intrauterine gestation. Initially breech then cephalic position. Placenta: Posteriorplacenta grade 1. There is an average amount of fluid. MVP 2.0 cm. The cervix appears satisfactory. Closed and measuring 4.3 cm in length. Complete survey performed and was unremarkable on the submitted images as in PACS. No discrete anomalies identified on survey imaging by technologist. Active fetus. Three-vessel cord with satisfactory umbilical cord insertion. 4- chamber heart noted. Situs, aortic arch, LVOT, three-vessel view appear normal. Survey of brain & ventricles Unremarkable. Cerebellum, thalamus, choroid plexus, cisterna magna appear normal. Face and neck survey unremarkable. Profile, nasion, lips and nose appeared normal. Diaphragm and chest views unremarkable. Abdomen: Both kidneys noted and unremarkable. Stomach and bladder noted and satisfactory. Spine: Survey of the spine satisfactory with no anomalies identified nor imaged. Cervical, thoracic, lower spine appear normal. Both arms and legs noted. Amniotic Fluid: Adequate. Measurements: Average ultrasound age 19weeks 4days. Estimated due date by ultrasound age 0409/21/2023. Estimated weight 311g BPD = 19weeks 0 days OFD = 20weeks 2days HC = 19weeks 2days AC = 19weeks 5days FL = 20weeks 1day Growth Percentile= 40 Heart Rate = 152bpm Cerebellum = 18weeks 6days Humerus = 19weeks 6days HC/AC is 1.15 CI is 0.72 FL/BPD is 0.76 FL/AC is 0.22 IMPRESSION: 1. Viable fetus in the cephalic presentation with a posterior placenta grade 1. 2. The fluid is within normal limits. 3. Anatomical scan appears normal. 4. biometry is consistent with dates. Dictated by: Pantera Cardoza MD 05/01/2023 13:52 Pantera Cardoza MD in [place] 05/01/2023 13:52
== END ==
PROVIDERS: PCP Obstetrics & Gynecology; Visit Provider Obstetrics & Gynecology
DX: Z34.92 Encounter for supervision of normal pregnancy, unspecified, second trimester (principal); Z3A.20 20 weeks gestation of pregnancy
CPT/HCPCS: 76811

== ENCOUNTER 2023-06-17 07:24 | Outpatient (CLI) | payer OTHER, SELFPAY ==
[2023-06-17 07:40] LABS: Basophils % 0.3 % (0.1-2.0); Eosinophils # 0.1 K/mm3 (0.0-0.4); Eosinophils % 1.2 % (0.1-12.0); Hemoglobin 11.9 g/dL (12.2-16.2); Lymphocytes # 1.8 K/mm3 (0.7-4.5); Lymphocytes % 21.1 % (10-50); Mean Corpuscular Hemoglobin 32.1 pg (27.0-31.2); Mean Corpuscular Volume 91.7 fl (81-99); Mean Platelet Volume 8.6 fl (7.4-10.4); Monocytes # 0.5 K/mm3 (0.1-1.0); Monocytes % 6.4 % (1.7-9.3); Platelet Count 206 K/mm3 (142-424); Red Blood Count 3.71 M/mm3 (4.20-5.40); Red Cell Distribution Width 13.5 % (11.5-17.5); White Blood Count 8.5 K/mm3 (4.8-10.8)
[2023-06-17 07:47] LABS: Glucose,Fasting 76 mg/dl (74-100)
[2023-06-17 09:28] LABS: Glucose 1 Hour 132 mg/dL (74-100)
== END 2023-06-17 23:59 ==
LOC: LAB 07:25
PROVIDERS: Visit Provider Obstetrics & Gynecology
DX: Z34.92 Encounter for supervision of normal pregnancy, unspecified, second trimester (principal); Z3A.25 25 weeks gestation of pregnancy
CPT/HCPCS: 82951; 85025

== ENCOUNTER 2023-06-20 15:12 | Outpatient (CLI) | payer OTHER, SELFPAY ==
[2023-06-20 15:22] VITALS: BMI 25.3
[2023-06-20 15:46] VITALS: BP 131/68; PULSE 86; RESP 18; TEMP 37.3; O2SAT 98; BMI 25.3
[2023-06-20 15:52] LABS: Microscopic, Urine URINE MICROSCOPIC (MICROSCOPIC)
[2023-06-20 15:56] LABS: Appearance,Urine CLEAR (Clear); Bilirubin,Urine Negative (Negative); Blood, Urine TRACE-I (Negative); Color,Urine YELLOW (Yellow); Glucose,Urine (UA) Negative (Negative); Ketones,Urine Negative (Negative); Leukocyte Esterase,Urine Negative (Negative); Nitrate,Urine Negative (Negative); Protein,Urine Negative (Negative); Specific Gravity, Urine 1.025 (1.005-1.030); Urobilinogen,Urine 0.2 EU/dl (0.2)
[2023-06-20 16:03] LABS: Fetal Membrane Rupture (Rapid) Negative (Negative)
[2023-06-20 16:07] LABS: Bacteria,Urine 2+ /lpf; WBC,Urine Occasional #/hpf (0-3)
[2023-06-20 16:13] LABS: Amphetamine/Metha Screen,Urine Negative ng/ml (<1000); Barbiturates Screen,Urine Negative ng/ml (<200); Benzodiazepines Screen,Urine Negative ng/ml (<200); Cannabinoid Screen,Urine Negative ng/ml (<50); Cocaine Screen,Urine Negative ng/ml (<300); Methadone Screen,Urine Negative ng/ml (<300); Opiate Screen,Urine Negative ng/ml (<300); Phencyclidine Screen,Urine Negative ng/ml (<25)
== END 2023-06-20 16:20 | disposition home or self-care (01) ==
LOC: OBOUT 15:15 → OB 15:16
PROVIDERS: Visit Provider Obstetrics & Gynecology
DX: O26.892 Other specified pregnancy related conditions, second trimester (principal); Z3A.26 26 weeks gestation of pregnancy
CPT/HCPCS: 59025; 80307; 81001; 84112; 87086; G0463

== ENCOUNTER 2023-07-06 16:46 | Emergency (ER) | payer OTHER, SELFPAY ==
[2023-07-06 17:15] VITALS: BP 127/70; PULSE 119; RESP 18; TEMP 37.2; O2SAT 98; BMI 25.8
[2023-07-06 17:31] LABS: Influenza A, PCR Not Detected (NotDetected); Influenza B, PCR Not Detected (NotDetected)
--- NOTE | 2023-07-06 17:44 | EXP.UTC ---
Discharge Plan Disposition Patient Disposition: Home, Self-Care Condition: Good Prescriptions Prescriptions: No Action prenat.vits,cinthia,kfw-[id number] Tablet 1 tab PO DAILY amoxicillin 500 mg capsule 500 mg PO BID 5 Days Qty: 10 0RF Referrals Follow up/Referrals: Provider,Referral, [Primary Care Provider] - See instructions Activity Restrictions/Add. Instructions Additional Instructions/Restrictions: No sign of a bacterial infection. Likely viral. Viruses can take 7-14 days to run their course. Nasal saline and bulb syringe or nose Maryann to remove nasal drainage to help with nasal congestion. Hard to eat, drink, sleep with nasal congestion so important to keep this cleaned out. Monitor temp. Tylenol or Motrin as needed for pain or fever Encourage fluids, water, Gatorade, Powerade, Pedialyte if /toddler/child Warm salt water gargles Warm fluids Sore throat lozenges Sleep elevated Humidifier/vaporizer Follow-up immediately for new or worsening symptoms or no noticeable improvement over the next 48-72 hours. Clinical Impressions Clinical Impression: COVID Stand Alone Forms Stand Alone Forms: Work/School Release Instructions Patient Instructions: COVID-19: Protecting Yourself When You're at High Risk, DI for COVID-19 (Suspected or Confirmed ) Discharge ED Provider: Duc ([facility])Lewis [facility] [place] HPI General Stated complaint: at home covid test + Mode of Arrival: Ambulatory Source of Information: Patient Limitations: No Limitations Time Seen by Provider: 07/06/23 17:44 Description of Symptoms (Recalled from Triage Doc. by RN): Pt has a positive at home test. Her symptoms are fever, body aches, and runny nose. HEENT Symptoms (Recalled from RN notes): Yes Resp Symptoms (Recalled from RN notes): No Skin Symptoms (Recalled from RN notes): No MS Symptoms (Recalled from RN notes): No Functional Status (Recalled from RN notes): n/a History of Present Illness Provider Complaint: 28 yr old female presents for fever, body aches, and runny nose. home covid test was positive Related Data Home Medications Medication Instructions Recorded Confirmed prenat.vits,cinthia,ees-dlkn-kyzhd 1 tab PO DAILY 06/26/23 07/06/23 Previous Rx's Medication Instructions Recorded amoxicillin 500 mg capsule 500 mg PO BID 5 days #10 caps 07/04/23 Allergies Allergy/AdvReac Type Severity Reaction Status Date / Time No Known Allergies Allergy Verified 07/06/23 17:32 Worker's Comp Is this a Worker's Comp case?: No [facility] Disclaimer: The information contained in this section may have been updated after the patient was seen, as this information can be updated by other users. 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 of previous surgery Family History , [employer] PROJECT MANAGER) Substance abuse Anemia Hyperlipidemia Cancer Social History , [employer] PROJECT MANAGER) Smoking Status: Former smoker tobacco type: e-cigarettes smoking status start date: vapes alcohol intake: never substance use type: denies use current occupational status: employed Travel in the last 8 weeks: None ROS Obtained: Yes All systems reviewed & no additional complaints except as documented Constitutional Constitutional: Reports system reviewed and no additional complaints, except as documented, Reports as per HPI, Reports body ache and Reports fever(s) Eyes Eyes: Reports system reviewed and no additional complaints, except as documented ENT Ears, Nose, Mouth, and Throat: Reports system reviewed and no additional complaints, except as documented, Reports as per HPI, Reports nasal discharge and Reports post nasal drip Cardiovascular Cardiovascular: Reports system reviewed and no additional complaints, except as documented Respiratory Respiratory: Reports system reviewed and no additional complaints, except as documented Musculoskeletal Musculoskeletal: Reports system reviewed and no additional complaints, except as documented Integumentary/Breasts Skin/Breast: Reports system reviewed and no additional complaints, except as documented Neurologic Neurologic: Reports system reviewed and no additional complaints, except as documented Hematologic/Lymphatic Henatologic/Lymphatic: Reports system reviewed and no additional complaints, except as documented Allergic/Immunologic Allergic/Immunologic: Reports system reviewed and no additional complaints, except as documented Physical Exam General General appearance: alert and in no apparent distress Head Head exam: atraumatic Eye Eye exam: Present normal appearance and PERRL ENT ENT exam: Present mucous membranes moist and TM's normal bilaterally Respiratory Respiratory exam: Present normal lung sounds bilaterally Cardiovascular Cardiovascular exam: Present regular rate and normal rhythm Neurological Exam Neurological exam: Present alert and oriented X3 Skin Skin exam: Present warm Medical Decision Making Medical Records Medical records reviewed: Yes I reviewed the patient's medical records. Cristi Inquiry Pt receiving controlled substance: No Cristi was queried for this patient: No Vital Signs: 07/06/23 17:15 Temperature 99.0 F Temperature Source Oral Pulse Rate [Right Radial] 119 H Respiratory Rate 18 Blood Pressure [Right Arm] 127/70 Blood Pressure Mean [Right Arm] 89 Blood Pressure Source [Right Arm] Automatic Cuff Blood Pressure Position [Right Arm] Sitting 02 Sat by Pulse Oximetry 98 Oxygen Delivery Method Room Air Orders (Tests/Meds): ORDERS Category Date Time Status Rapid PCR Covid and Flu A/B Stat Lab 07/06/23 17:15 Received
[2023-07-06 17:55] LABS: Coronavirus 19, PCR Detected (NotDetected)
[2023-07-06 18:05] VITALS: BP 127/70; PULSE 119; RESP 18; TEMP 37.2; O2SAT 98
== END 2023-07-06 18:05 | disposition home or self-care (01) ==
PROVIDERS: Emergency Provider Nurse Practitioner Family
DX: U07.1 COVID-19 (principal); R50.9 Fever, unspecified; R09.81 Nasal congestion; R09.82 Postnasal drip; M79.18 Myalgia, other site
CPT/HCPCS: 87636; 99212; 99213; G0463

== ENCOUNTER 2023-08-26 16:35 | Outpatient (CLI) | payer OTHER, SELFPAY | END 2023-08-26 23:59 | LOC: LAB.DROPOF 16:36 | PROVIDERS: PCP Obstetrics & Gynecology; Visit Provider Obstetrics & Gynecology | DX: O26.893 Other specified pregnancy related conditions, third trimester (principal); O99.820 Streptococcus B carrier state complicating pregnancy; Z3A.36 36 weeks gestation of pregnancy | CPT/HCPCS: 86403 ==

== ENCOUNTER 2023-09-15 16:20 | Inpatient (IN) | payer OTHER, SELFPAY ==
[2023-09-15 16:26] VITALS: BMI 27.7
[2023-09-15 16:29] VITALS: BMI 27.8
[2023-09-15 16:59] LABS: Microscopic, Urine URINE MICROSCOPIC (MICROSCOPIC)
[2023-09-15 17:00] LABS: Appearance,Urine CLEAR (Clear); Bilirubin,Urine Negative (Negative); Blood, Urine Negative (Negative); Color,Urine YELLOW (Yellow); Glucose,Urine (UA) TRACE (Negative); Ketones,Urine Negative (Negative); Leukocyte Esterase,Urine TRACE (Negative); Nitrate,Urine Negative (Negative); Protein,Urine Negative (Negative); Specific Gravity, Urine <= 1.005 (1.005-1.030); Urobilinogen,Urine 0.2 EU/dl (0.2)
[2023-09-15 17:10] LABS: Basophils # 0.1 K/mm3 (0-0.2); Basophils % 0.7 % (0.1-2.0); Eosinophils # 0.1 K/mm3 (0.0-0.4); Eosinophils % 0.7 % (0.1-12.0); Hematocrit 33.9 % (37.0-47.0); Hemoglobin 10.7 g/dL (12.2-16.2); Lymphocytes # 1.9 K/mm3 (0.7-4.5); Lymphocytes % 24.9 % (10-50); Mean Corpuscular HGB Conc 31.4 g/dL (31.8-35.4); Mean Corpuscular Hemoglobin 26.5 pg (27.0-31.2); Mean Corpuscular Volume 84.1 fl (81-99); Mean Platelet Volume 9.1 fl (7.4-10.4); Monocytes # 0.5 K/mm3 (0.1-1.0); Monocytes % 6.6 % (1.7-9.3); Neutrophils # 5.1 K/mm3 (1.8-7.8); Platelet Count 222 K/mm3 (142-424); Red Blood Count 4.03 M/mm3 (4.20-5.40); Red Cell Distribution Width 15.9 % (11.5-17.5); White Blood Count 7.6 K/mm3 (4.8-10.8)
[2023-09-15 17:14] LABS: Amphetamine/Metha Screen,Urine Negative ng/ml (<1000); Benzodiazepines Screen,Urine Negative ng/ml (<200)
[2023-09-15 17:15] LABS: Barbiturates Screen,Urine Negative ng/ml (<200)
[2023-09-15 17:16] LABS: Cannabinoid Screen,Urine Negative ng/ml (<50); Cocaine Screen,Urine Negative ng/ml (<300)
[2023-09-15 17:17] LABS: Methadone Screen,Urine Negative ng/ml (<300)
[2023-09-15 17:18] LABS: Opiate Screen,Urine Negative ng/ml (<300); Phencyclidine Screen,Urine Negative ng/ml (<25)
[2023-09-15] MEDS: miSOPROStol 100MCG TABLET 50 MCG PO (17:31)
[2023-09-15 17:35] LABS: Squamous Epithelial Cell,Urine Occasional #/hpf (0-5); WBC,Urine Occasional #/hpf (0-3)
[2023-09-15] MEDS: DEXTROSE 5%-LACTATED RINGERS 1,000 ML 125 ML IV (19:41)
[2023-09-15 19:56] VITALS: BP 121/65; PULSE 87; RESP 20; TEMP 36.6; O2SAT 99
[2023-09-15] MEDS: ACETAMINOPHEN 325MG TAB 650 MG PO (20:47)
[2023-09-15] MEDS: BUTORPHANOL TARTRATE 1 MG/ML VIAL IV (23:38)
[2023-09-16] MEDS: miSOPROStol 100MCG TABLET 50 MCG PO (00:52)
[2023-09-16] MEDS: DEXTROSE 5%-LACTATED RINGERS 1,000 ML 125 ML IV ×2 (03:59→13:19)
[2023-09-16] MEDS: BUTORPHANOL TARTRATE 1 MG/ML VIAL IV (04:10)
[2023-09-16 04:32] VITALS: BP 137/83; PULSE 78; RESP 20; TEMP 36.7; O2SAT 99
[2023-09-16] MEDS: OXYTOCIN/RINGERS LACTATE 30 UNITS/500 ML BAG IV (06:58)
--- NOTE | 2023-09-16 07:17 | HMH.PHAINT1 ---
Pharmacy Intervention Comments: HOME MEDICATION LIST VERIFIED VIA OFFIC VISIT NOTE
[2023-09-16] MEDS: AMPICILLIN SODIUM 2 GM in 0.9 % SODIUM CHLORIDE 100 ML IV (07:36)
--- NOTE | 2023-09-16 09:27 | P.HP_ITS ---
OB - H&P: HPI Antepartum History of Present Illness Chief complaint: Elective induction of labor History of present illness: Mrs Karoline Rosales is a 28 yo at 39w3d who presents to [facility] Labor and Delivery for scheduled elective induction of labor. She has had good care. History of Present Criteria for establishing EDC:: based on 1st trimester US only care: good care Ultrasounds: normal mid trimester US Obstetrical complications: none Medical complications: none Labs Blood type: O (+) positive Rubella: immune RPR/VDRL: nonreactive GBS status: positive HBsAG: negative PFSH [facility] Disclaimer: The information contained in this section may have been updated after the patient was seen, as this information can be updated by other users. Medical History (Updated 09/16/23 @ 09:34 by Adri Vazquez DO) Encounter for elective induction of labor 39 weeks gestation of Diarrhea during Positive GBS test Headache Screening for genetic disease carrier status Nausea and vomiting Electronic cigarette use Tobacco use affecting , antepartum Surgical History No history of previous surgery Family History Other Anemia Cancer Hyperlipidemia Substance abuse Social History (Updated 09/15/23 @ 18:15 by Charlie Ocasio RN) Smoking Status: Former smoker smoking status start date: vapes alcohol intake: never substance use type: denies use current occupational status: employed Travel in the last 8 weeks: None Review of Systems Review of Systems Review of systems:: pertinent systems reviewed and negative unless documented below Constitutional Constitutional: Reports headache(s) ENT Ears, Nose, Mouth, and Throat: Reports headache(s) *Neurologic Neurologic: Reports headache(s) Meds Home Medications and Allergies Home Medications Medication Instructions Recorded Confirmed Type prenat.vits,cinthia,ino-oxki-szfxx 1 tab PO DAILY 06/26/23 09/15/23 History New Prescriptions to Start Prescriptions: Allergies Allergy/AdvReac Type Severity Reaction Status Date / Time No Known Allergies Allergy Verified 09/09/23 15:24 OB - H&P: Exam Physical Exam Vital signs: Temp Pulse Resp BP Pulse Ox O2 Del Method 98.0 F 78 20 137/83 99 Room Air 09/16/23 04:32 09/16/23 04:32 09/16/23 04:32 09/16/23 04:32 09/16/23 04:32 09/16/23 04:32 Constitutional no acute distress and cooperative Routine HEENT Exam Head: Present normocephalic and atraumatic Eye: Absent conjunctivae pink ENT: Present mucous membranes moist Routine Neck Exam Present full ROM Routine Respiratory Exam Present CTA bilaterally and normal respiratory effort Routine Cardiovascular Exam Present RRR Routine Abdominal Exam Present soft (Gravid); Absent tenderness Routine Rectal Exam Patient deferred: visual exam Routine Exam External: Present normal urethra appearance; Absent erythema, tenderness, lesions, lacerations or vulvar tenderness Routine Extremities Exam Present full ROM; Absent edema or calf tenderness Routine Neurological Exam Present alert, moving all extremities and normal speech Routine Psychiatric Exam Present normal affect and cooperative Detailed Labor and Delivery Exam Dilation (cm): 2 Effacement (%): 60 Cervix position: posterior station: -3 Consistency: soft Membranes: artificially ruptured Baseline heart rate: 150 monitor accelerations: Present monitor decelerations: None long term variability: Moderate (11-25) Contraction frequency (min): 4 OB - Results Labs Labs: Short CBC 09/15/23 Range/Units 16:45 WBC 7.6 (4.8-10.8) K/mm3 Hgb 10.7 L (12.2-16.2) g/dL Hct 33.9 L (37.0-47.0) % Plt Count 222 (142-424) K/mm3 Urine 09/15/23 Range/Units 16:30 Urine Color Yellow (Yellow) Urine Appearance Clear (Clear) Urine pH 6.0 (5.0-8.5) Ur Specific [place] <= 1.005 (1.005-1.030) Urine Protein Negative (Negative) Urine Glucose (UA) Trace (Negative) OB - A/P Antepartum (1) 39 weeks gestation of : Status: Acute (2) Encounter for elective induction of labor: Status: Acute (3) Tobacco use affecting , antepartum: Status: Acute (4) Electronic cigarette use: Status: Acute (5) Positive GBS test: Status: Acute Additional Plan Additional Information:: Admit to [facility] L&D for elective induction of labor Induction with Cytotec followed by Pitocin GBS positive. Ampicillin for GBS prophylaxis Close monitoring
--- NOTE | 2023-09-16 12:07 | P.PNANES_ITS ---
[facility] Disclaimer: The information contained in this section may have been updated after the patient was seen, as this information can be updated by other users. Medical History (Updated 09/16/23 @ 09:34 by Adri Vazquez DO) Encounter for elective induction of labor 39 weeks gestation of Diarrhea during Positive GBS test Headache Screening for genetic disease carrier status Nausea and vomiting Electronic cigarette use Tobacco use affecting , antepartum Surgical History No history of previous surgery Family History Other Anemia Cancer Hyperlipidemia Substance abuse Social History (Updated 09/15/23 @ 18:15 by Charlie Ocasio, ANDREW) Smoking Status: Former smoker smoking status start date: vap alcohol intake: never substance use type: denies use current occupational status: employed Travel in the last 8 weeks: None [facility] Anesthesia Checklist Patient Identification Patient Identification: Arm Band Structural Data Admitted From: Inpatient Planned Operative Procedure/s: Labor Epidural Consent for Planned Operative Procedure(s) Verified: Yes Verified Documents: Surgical Consent and History and Physical Additional verifications Anesthesia Reactions: No Airway Assessment Dentition: Good Dentition Neurological Assessment Level of Consciousness: Awake and Alert Anesthesia Plan Anesthesia Risk discussed: Yes Anesthesia Plan: Verified ASA Class: II Anesthesia Type: Epidural
[2023-09-16] MEDS: LACTATED RINGERS 1000ML 1,000 ML 250 ML IV (12:15)
[2023-09-16] MEDS: ePHEDrine SULF 50MG/ML VIAL 10 MG IV (12:29)
[2023-09-16] MEDS: AMPICILLIN SODIUM 1 GM in 0.9 % SODIUM CHLORIDE 50 ML IV ×2 (12:29→15:59)
[2023-09-16] MEDS: OXYTOCIN/RINGERS LACTATE 30 UNITS/500 ML BAG 40 UNITS IV ×2 (17:44→22:02)
--- NOTE | 2023-09-16 17:47 | EXP.DN ---
Delivery Note Delivery Date:: 09/16/23 Delivery Time:: 17:26 Anesthesia Type: Epidural Was labor medically induced?: No Gestational age (weeks): 39 Infant delivered prior to 39 weeks?: No Gender: Female at 1 minute: 8 at 5 minutes: 9 Delivery Procedure:: Mom complete with epidural. Pushed for approximately 56 minutes. Head delivered spontaneously over intact perineum in OA position. Nuchal cord x 2. Anterior shoulder delivered with gentle downward pressure. Posterior shoulder and remainder of body delivered spontaneously. Baby placed on maternal abdomen, mouth and nares bulb suctioned, warmed/dried and stimulated. Delayed cord clamping was performed for 60 seconds. Cord was clamped and cut by father of baby. Cord blood was obtained. Placenta delivered spontaneously and intact. First degree perineal laceration repaired with 3-0 Vicryl. Hemostasis noted. Mom and baby were skin to skin and doing well after delivery. Live female baby (baby's name is Daksha) APGARs 8 (1 min), 9 (5 min) EBL 150 mL Laceration:: vaginal Placental Delivery Description: Spontaneous
[2023-09-16] MEDS: ACETAMINOPHEN 325MG TAB 650 MG PO (18:43)
[2023-09-16] MEDS: IBUPROFEN 400 MG TABLET 800 MG PO (18:44)
[2023-09-16] MEDS: ONDANSETRON 4MG/2ML VIAL 4 MG IV (18:56)
[2023-09-16] MEDS: TRANEXAMIC ACID 1,000 MG in 0.9 % SODIUM CHLORIDE 250 ML 500 MG IV (19:01)
[2023-09-16] MEDS: MVI, ADULT NO.1 WITH VIT K 10 ML, THIAMINE HCL 100 MG, MAGNESIUM SULFATE 2 GM in LACTAT... 125 ML IV (20:30)
[2023-09-17] MEDS: ACETAMINOPHEN 325MG TAB 650 MG PO ×2 (00:47→04:35)
[2023-09-17] MEDS: IBUPROFEN 400 MG TABLET 800 MG PO ×3 (04:34→23:27)
[2023-09-17 06:41] LABS: Basophils % 0.3 % (0.1-2.0); Eosinophils # 0.1 K/mm3 (0.0-0.4); Eosinophils % 0.6 % (0.1-12.0); Hematocrit 25.4 % (37.0-47.0); Hemoglobin 8.3 g/dL (12.2-16.2); Lymphocytes # 2.5 K/mm3 (0.7-4.5); Lymphocytes % 23.4 % (10-50); Mean Corpuscular HGB Conc 32.8 g/dL (31.8-35.4); Mean Corpuscular Hemoglobin 27.1 pg (27.0-31.2); Mean Corpuscular Volume 82.8 fl (81-99); Mean Platelet Volume 10.4 fl (7.4-10.4); Monocytes # 0.7 K/mm3 (0.1-1.0); Monocytes % 6.5 % (1.7-9.3); Neutrophils # 7.4 K/mm3 (1.8-7.8); Neutrophils % 69.2 % (37.0-80.0); Platelet Count 190 K/mm3 (142-424); Red Blood Count 3.07 M/mm3 (4.20-5.40); Red Cell Distribution Width 15.9 % (11.5-17.5); White Blood Count 10.7 K/mm3 (4.8-10.8)
[2023-09-17] MEDS: IRON SUCROSE COMPLEX 200 MG in 0.9 % SODIUM CHLORIDE 100 ML 220 MG IV (08:26)
--- NOTE | 2023-09-17 08:28 | EXP.ACUTE.PN ---
Subjective *Date: 09/17/23 *Time: 08:28 Interval history: PPD# 1 s/p Sitting comfortably in bed. Pain controlled. Breast feeding. Lochia is appropriate. Tolerating regular diet. Voiding without difficulty and passing flatus. No headaches, vision changes, lightheadedness/dizziness. Denies fever/chills, chest pain and shortness of breath. No lower extremity swelling. Medical Exam Vital signs and Labs for Last 24 Hours: Intake and Output 09/16/23 09/17/23 09/17/23 23:59 07:59 15:59 Output Total 800 / 800 Balance -800 / 482 Output: Output, Urine Amount (Catheter) 800 / 800 Straight 800 / 800 Laboratory Results - last 24 hr 09/17/23 06:15: WBC 10.7 D, RBC 3.07 L, Hgb 8.3 L, Hct 25.4 L, MCV 82.8, MCH 27.1, MCHC 32.8, RDW 15.9, Plt Count 190, MPV 10.4, Neut % (Auto) 69.2, Lymph % (Auto) 23.4, [place] % (Auto) 6.5, Eos % (Auto) 0.6, Baso % (Auto) 0.3, Neut # (Auto) 7.4, Lymph # (Auto) 2.5, [place] # (Auto) 0.7, Eos # (Auto) 0.1, Baso # (Auto) 0.0 I & O for Labs for Last 24 Hours: Intake & Output 09/14/23 09/15/23 09/16/23 09/17/23 23:59 23:59 23:59 23:59 Intake Total 1282 / 1282 Output Total 800 / 800 Balance 482 / 482 Weight 178 lb Head: Present atraumatic and normocephalic ENT: Present mucous membranes moist Neck: Present normal inspection and full ROM Respiratory: Present CTA bilaterally and normal respiratory effort Cardiac: Present Reg Rate and Rhythm GI: Present soft; Absent distention or tenderness Comments:: Uterine fundus firm and below umbilicus Rectal (female): Present deferred (female): Present deferred Extremities: Present full ROM; Absent edema or calf tenderness Neuro: Present alert, awake and moves all extremities Assessment and Plan *Assessment and plan (1) Status post vaginal delivery: Status: Acute Category: Surgical (2) 39 weeks gestation of : Status: Acute Category: Medical Code(s): Z3A.39 - 39 weeks gestation of (3) hemorrhage: Status: Acute Category: Medical Code(s): O72.1 - Other immediate hemorrhage (4) Encounter for elective induction of labor: Status: Acute Category: Medical Code(s): Z34.90 - Encounter for supervision of normal , unspecified, unspecified trimester (5) Positive GBS test: Status: Acute Category: Medical Code(s): B95.1 - Streptococcus, group B, as the cause of diseases classified elsewhere (6) Tobacco use affecting , antepartum: Status: Acute Category: Medical Code(s): O99.330 - Smoking (tobacco) complicating , unspecified trimester (7) Electronic cigarette use: Status: Acute Category: Social Hx Code(s): Z78.9 - Other specified health status (8) Acute blood loss anemia: Status: Acute Category: Medical Code(s): D62 - Acute posthemorrhagic anemia Plan Continue routine care Encouraged increased ambulation QBL 841 mL. AM Hgb 8.3 - Venofer 200 mg IV x 1 dose Plan d/c home tomorrow
[2023-09-17] MEDS: PRENATAL MULTIVITAMIN W/IRON 1 EACH PO (14:10)
[2023-09-17] MEDS: OXYCODONE 5MG IMMEDIATE RELEASE TABLET 5 MG PO (14:30)
[2023-09-18] MEDS: IBUPROFEN 400 MG TABLET 800 MG PO (09:43)
--- NOTE | 2023-09-18 09:45 | P.DS_ITS ---
General Admission date:: 09/15/23 Discharge date: 09/18/23 HPI HPI HPI: PPD # 2 s/p Feeling well. Pain controlled. Breast feeding. Light lochia. Voiding without difficulty and passing flatus. Tolerating regular diet. Denies fever/chills, chest pain and shortness of breath. No headaches, vision changes, lightheadedness/dizziness. No lower extremity swelling. Ambulating well ad rajiv. Hospital Course Hospital Course Hospital Course: Mrs Karoline Rosales is a 28 yo at 39w3d who presents to [facility] Labor and Delivery for scheduled elective induction of labor. She has had good care. She underwent induction of labor with Cytotec followed by Pitocin. GBS positive She had a normal spontaneous vaginal delivery on 09/16/23 at 1726. She delivered a live female baby, Daksha, weighing 8 lbs 7 oz. APGARs 8 (1 min), 9 (5 min). EBL 150 mL. She had hemorrhage after delivery with QBL 841 mL. PPD # 1 Hgb 8.3 (10.7 on admission). She received Venofer 200 mg IV x 1 dose on PPD # 1. She did well . Pain controlled. Breast feeding. Light lochia. Voiding without difficulty and passing flatus. Tolerating regular diet. Denies fever/chills, chest pain and shortness of breath. No headaches, dizziness/lightheadedness or vision changes. Vital signs stable, afebrile. Heart regular rate and rhythm. Lungs clear to auscultation. Abdomen soft, nontender. No lower extremity swelling. Ambulating well ad rajiv. Normal hospital course. She was discharged to home on PPD # 2 with instructions to follow-up in the office in 2 weeks or sooner if needed. Exam Data for Last 24 hours Vital signs and Labs for Last 24 Hours: Temp Pulse Resp BP Pulse Ox O2 Del Method 98.0 F 78 20 137/83 99 Room Air 09/16/23 04:32 09/16/23 04:32 09/16/23 04:32 09/16/23 04:32 09/16/23 04:32 09/16/23 04:32 I & O for Last 24 hours: Intake & Output 09/15/23 09/16/23 09/17/23 09/18/23 23:59 23:59 23:59 23:59 Intake Total 1282 / 1282 Output Total 800 / 800 Balance 482 / 482 Weight 178 lb Constitutional Constitutional: no acute distress and cooperative *Routine HEENT Exam Head: Present normocephalic and atraumatic Eye: Absent conjunctivae pink ENT: Present mucous membranes moist *Routine Neck Exam Neck: Present full ROM *Routine Respiratory Exam Respiratory: Present CTA bilaterally and normal respiratory effort *Routine Cardiovascular Exam Cardiovascular: Present RRR *Routine Abdominal Exam Abdominal: Present soft; Absent tenderness Comments: Uterine fundus firm and below umbilicus *Routine Rectal Exam Patient deferred: visual exam *Routine Exam Patient deferred: external exam *Routine Extremities Exam Extremities: Present full ROM; Absent edema or calf tenderness *Routine Neurological Exam Neurological: Present alert, moving all extremities and normal speech Routine Psychiatric Exam Psychiatric: Present normal affect and cooperative DS: Diagnosis Discharge Diagnosis (1) Status post vaginal delivery: Status: Acute (2) 39 weeks gestation of : Status: Acute Code(s): Z3A.39 - 39 weeks gestation of (3) hemorrhage: Status: Acute Code(s): O72.1 - Other immediate hemorrhage (4) Encounter for elective induction of labor: Status: Acute Code(s): Z34.90 - Encounter for supervision of normal , unspecified, unspecified trimester (5) Positive GBS test: Status: Acute Code(s): B95.1 - Streptococcus, group B, as the cause of diseases classified elsewhere (6) Tobacco use affecting , antepartum: Status: Acute Code(s): O99.330 - Smoking (tobacco) complicating , unspecified trimester (7) Electronic cigarette use: Status: Acute Code(s): Z78.9 - Other specified health status (8) Acute blood loss anemia: Status: Acute Code(s): D62 - Acute posthemorrhagic anemia Meds Home Medications and Allergies Home Medications Medication Instructions Recorded Confirmed Type prenat.vits,cinthia,[id number] 1 tab PO DAILY 06/26/23 09/15/23 History ibuprofen 800 mg tablet 800 mg PO Q8H PRN pain #30 tabs 09/17/23 Rx New Prescriptions to Start Prescriptions: Adri Coronado Allergies Allergy/AdvReac Type Severity Reaction Status Date / Time No Known Allergies Allergy Verified 09/09/23 15:24 Discharge Plan Disposition Patient Disposition: Home, Self-Care Condition: Good Discharge Order Discharge Orders: Discharge Order (Routine); Ordered 09/18/23 Ordered By: Adri Vazquez Follow up Plan Follow up with: Adri Vazquez DO [Staff Physician] - 2 weeks Prescriptions/Medication Reconciliation: New ibuprofen 800 mg tablet 800 mg PO Q8H PRN (Reason: pain) Qty: 30 0RF Continued prenat.vits,cinthia,[id number] Tablet 1 tab PO DAILY Problem Reconciliation Problems Reviewed?: Yes Patient Discharge Instructions ACTIVITY: Limited activity DIET: continue same diet and regular diet Additional Instructions: Discharge: 1. Take 800 mg Ibuprofen every 8 hours as needed for pain. You can also take 500-1000 mg of Tylenol in between doses, every 6-8 hours. 2. Nothing in the vagina for 6 weeks - no intercourse, douching or tampons. No tub baths/hot tubs or swimming pools 3. Reasons to return to L&D or call On-Call doctor - fever (greater than 100.4) - heavy vaginal bleeding (soaking through 1 pad in less than 2 hours) - vaginal discharge (malodorous and/or purulent) - severe headaches not resolved by medication or rest and leg tenderness/edema 4. depression/blues - Normal to feel anxious/overwhelmed for first 2 weeks - Talk to your doctor if: severe anxiety, trouble bonding with baby, withdrawing from other family members, thoughts of harming yourself or others Adri Vazquez DO [facility] [phone] Patient Instructions: Depression, Labor and Delivery, Vaginal , Hemorrhage, DI for Pre-eclampsia Providers Primary Care Provider: Provider,Referral Admit Provider: Adri Vazquez Attending Provider: Adri Vazquez
== END 2023-09-18 14:05 | disposition home or self-care (01) | DRG 806 ==
PROVIDERS: Admitting Provider Obstetrics & Gynecology; Visit Provider Obstetrics & Gynecology
DX: O99.334 Smoking (tobacco) complicating childbirth (principal); D62 Acute posthemorrhagic anemia; Z37.0 Single live birth; Z3A.39 39 weeks gestation of pregnancy; O99.824 Streptococcus B carrier state complicating childbirth; F17.290 Nicotine dependence, other tobacco product, uncomplicated; O72.1 Other immediate postpartum hemorrhage; O90.81 Anemia of the puerperium
CPT/HCPCS: 59409; 59025; 80307; 81001; 85025; 86850; 94761; G0283; J0290; J0595; J1756; J2405

== ENCOUNTER 2025-01-12 06:20 | Emergency (ER) | payer OTHER, SELFPAY ==
--- NOTE | 2025-01-12 06:25 | HMH.EDGENADL ---
Discharge Plan Disposition Patient Disposition: Home, Self-Care Prescriptions Prescriptions: No Action prenat.vits,cinthia,[id number] Tablet 1 tab PO DAILY ParaGard T 380A 380 square mm intrauterine device 1 device intrauterine ONCE metronidazole 500 mg tablet 500 mg PO BID 7 Days Qty: 14 0RF Referrals Follow up/Referrals: Provider,Referral, [Primary Care Provider, Medical] - See instructions Activity Restrictions/Add. Instructions Additional Instructions/Restrictions: Please apply erythromycin ointment 4 times a day as discussed. If your symptoms continue to worsen, please seek care with an eye doctor. Clinical Impressions Clinical Impression: Corneal abrasion, right Qualifiers: Encounter type: initial encounter Qualified Code(s): S05.01XA - Injury of conjunctiva and corneal abrasion without foreign body, right eye, initial encounter Print Language Print Language: Bulgarian Discharge ED Provider: Timothy Parsons General Adult HPI General Chief complaint: Eye Problems Stated complaint: eye irritation Time Seen by Provider: 01/12/25 06:25 History of Present Illness HPI narrative: 29-year-old female without significant past medical history presents for right eye irritation for the last few days. She reports she first noticed it when she was riding in a go-cart. [place] a little better and then when she woke up the next morning it was worse. Today is day later and it is again worse. She tried some antibiotic drops in case it was pinkeye, but she reports they did not help. She reports the vision is blurry and painful. Related Data Home Medications ?Medication ?Instructions ?Recorded ?Confirmed prenat.vits,cinthia,[id number] 1 tab PO DAILY 06/26/23 12/04/23 copper 380 square mm intrauterine 1 device intrauterine ONCE 12/04/23 12/04/23 device (ParaGard T 380A) Previous Rx's ?Medication ?Instructions ?Recorded metronidazole 500 mg tablet 500 mg PO BID 7 days #14 tabs 12/09/23 Allergies Allergy/AdvReac Type Severity Reaction Status Date / Time No Known Allergies Allergy Verified 12/04/23 15:34 [facility] Disclaimer: The information contained in this section may have been updated after the patient was seen, as this information can be updated by other users. Medical History Encounter for insertion of intrauterine contraceptive device (IUD) Paragard IUD inserted 10/30/23 Acute blood loss anemia Headache Electronic cigarette use Surgical History No history of previous surgery Family History Other Anemia Cancer Hyperlipidemia Substance abuse Social History Smoking Status: Never smoker smoking status start date: vapes alcohol intake: never substance use type: denies use current occupational status: employed Travel in the last 8 weeks?: None Have you lived/traveled outside [place] in past 30 days?: No Contact w/someone who lives/traveled outside [place] past 30 days?: No Exposure to someone with infectious disease in past 14 days?: No Do you have a fever (greater than 100.4 F or 38 C)?: No Have you tested positive for COVID-19?: No Exposed to someone with COVID-19 in past 14 days?: No Do you have a sore throat?: No Do you have a cough?: No Do you have any weakness?: No Do you have any diarrhea?: No Are you experiencing any unusual bleeding?: No Do you have any muscle aches/pain?: No Do you have any abdominal pain?: No Are you experiencing loss of taste or smell?: No Other Medical History Have you received the Flu Vaccine for this season: No Have you received the Pneumonia Vaccine: No ROS Obtained: Yes All systems reviewed & no additional complaints except as documented Physical Exam General General appearance: alert and in no apparent distress Head Head exam: atraumatic and normocephalic Eye Eye exam: Present PERRL, EOMI, conjunctival redness (Right) and other (Small area of fluorescein uptake over the 6 o'clock position of the pupil. No retained foreign body.) ENT ENT exam: Present normal oropharynx and normal external ear exam Neck Neck exam: Present normal inspection and full ROM Chest Chest inspection: Present normal inspection and symmetric chest wall rise; Absent tenderness Respiratory Respiratory exam: Present normal lung sounds bilaterally; Absent respiratory distress Cardiovascular Cardiovascular exam: Present regular rate and normal rhythm Abdominal Exam Abdominal exam: Present soft; Absent distention, tenderness or guarding Extremities Exam Extremities exam: Present normal inspection; Absent edema or joint swelling Back Exam Back exam: Present normal inspection; Absent tenderness Neurological Exam Neurological exam: Present alert and oriented X3; Absent motor sensory deficit Psychiatric Psychiatric exam: Present normal affect and normal mood Skin Skin exam: Present warm, dry and normal color Lymphatic Lymphatic Findings: no adenopathy Medical Decision Making Medical Records Medical records reviewed: Yes I reviewed the patient's medical records. Screening: Per USPSTF and CDC recommendations, given the prevalence of disease in our region, it is our hospital?s policy to screen for HIV and viral Hepatitis for all patients aged 18 and over and those with ongoing risk factors. Cristi Inquiry Pt receiving controlled substance: No Cristi was queried for this patient: No Vital Signs: 01/12/25 06:27 01/12/25 06:30 Temperature 97.8 F Temperature Source Oral Pulse Rate 89 Pulse Rate [Right Radial] 101 H Respiratory Rate 18 Blood Pressure 153/93 H Blood Pressure [Right Radial Artery] 138/105 H Blood Pressure Mean [Right Radial Artery] 116 Blood Pressure Position [Right Radial Artery] Supine 02 Sat by Pulse Oximetry 98 99 Oxygen Delivery Method Room Air Lab Data Lab results reviewed: Yes I reviewed the patient's lab results. Orders (Tests/Meds): ED MEDICATIONS Generic Name Dose Route Start Last Admin Trade Name Arvindq PRN Reason Stop Dose Admin Erythromycin 1 gm 01/12/25 06:36 01/12/25 06:40 Erythromycin Base 1 Gm Oint...G. OP 01/12/25 06:37 Not Given ONCE ONE Fluorescein Sodium 1 mg 01/12/25 06:36 01/12/25 06:38 Fluorescein Sodium 1mg Strip OP 01/12/25 06:37 1 mg ONCE ONE Administration Tetracaine HCl 0 ml 01/12/25 06:36 01/12/25 06:38 Tetracaine 0.5% Opth Rosalinda 15ml OP 01/12/25 06:37 15 ml ONCE ONE Administration Medical Decision Narrative: 29-year-old female without significant past medical history presents for couple days of right eye irritation. History was obtained via interactive discussion with patient. On arrival, patient is [afebrile, hemodynamically stable, satting appropriately, alert, oriented x4, GCS 15], moving all extremities spontaneously. Full physical exam performed and significant for small area of fluorescein uptake in the right cornea without retained foreign body Differential includes but is not limited to eye foreign body, corneal abrasion, glaucoma. Patient was given tetracaine, fluorescein, erythromycin ointment for symptomatic management and correction of underlying abnormalities. Presentation is consistent with corneal abrasion. Was given instructions regarding erythromycin ointment and symptomatic care. Encouraged follow-up with optometry, especially if symptoms worsen or do not improve. Patient discharged in stable condition with return precautions. Procedures Risk/Benefits of Procedure(s) Were Explained: Yes Critical Care Critical Care Time Critical Care Time: No
[2025-01-12 06:27] VITALS: BP 138/105; PULSE 101; RESP 18; TEMP 36.6; O2SAT 98; BMI 25.0
[2025-01-12 06:30] VITALS: BP 153/93; PULSE 89; O2SAT 99
--- NOTE | 2025-01-12 06:32 | PC.NURSE ---
Assisted MD Timothy Parsons with eye exam.
[2025-01-12] MEDS: TETRACAINE 0.5% OPTH SOL 15ML OP (06:38)
[2025-01-12] MEDS: FLUORESCEIN SODIUM 1MG STRIP 1 MG OP (06:38)
[2025-01-12 06:40] VITALS: BP 137/96; PULSE 97; RESP 18; TEMP 36.9; O2SAT 96
== END 2025-01-12 06:40 | disposition home or self-care (01) ==
PROVIDERS: Emergency Provider Emergency Medicine
DX: S05.01XA Injury of conjunctiva and corneal abrasion without foreign body, right eye, initial encounter (principal); X58.XXXA Exposure to other specified factors, initial encounter
CPT/HCPCS: 99283